=== PATIENT | male | born 2005 | race Two or more races ===

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

== ENCOUNTER 2023-06-08 13:28 | Inpatient (IN) | payer OTHER ==
[~2023-06-08] VITALS: Ht 172.7 cm; Wt 60.0 kg
[2023-06-08] MEDS ORDERED: VISTARIL25 MG PO (15:14)
[2023-06-08] MEDS ORDERED: PROMACTA50 MG PO (15:14)
[2023-06-08] MEDS ORDERED: CLINDAMYCI75 MG/5 M1 (15:15)
[2023-06-08] MEDS ORDERED: 0.9 % SODIUM CHLORIDE 1,000 ML IV SCH (16:00)
[2023-06-08] MEDS ORDERED: CLINDAMYCIN PHOSPHATE 150 MG/ML (300mg) IV SCH (17:00)
[2023-06-08 17:08] LABS: HEMATOCRIT 42.8 % (39.0-48.0); HEMOGLOBIN 14.6 g/dL (13-16.00); MEAN CELL VOLUME 86.2 fL (80.0-100.00); MEAN CORPUSCULAR HEMOGLOBIN 29.3 pg (27.00-32.0); MEAN CORPUSCULAR HGB CONC 34.1 g/dl (32.0-36.0); RED BLOOD COUNT 4.97 M/uL (4.00-6.00); RED CELL DISTRIBUTION WIDTH 13.2 % (11.5-14.5)
[2023-06-08 17:24] LABS: PLATELET COUNT 123 K/uL (150-450)
[2023-06-08 17:38] LABS: INR 1.01; PARTIAL THROMBOPLASTIN TIME 32.4 SECONDS (22.0-34.0); PROTHROMBIN TIME 10.6 SECONDS (9.0-11.5)
[2023-06-08 17:43] LABS: ALBUMIN 4.1 gm/dL (3.4-5.0); BILIRUBIN TOTAL 0.39 mg/dL (0.3-1.2); CALCIUM 9.2 mg/dL (8.5-10.1); CREATININE SERUM 0.73 mg/dL (0.70-1.30); D DIMER < 0.19 MG/L; GFR 138.41; GLOBULINA 3.1 G/DL (2.4-3.5); POTASSIUM 3.73 mEq/L (3.5-5.1); TOTAL PROTEIN 7.2 gm/dL (6.4-8.2)
[2023-06-08 19:53] LABS: COL EPI 62 SECONDS (82-175)
[2023-06-08] MEDS ORDERED: ACETAMINOPHEN 500 MG GEL..CAP PO SCH (21:00)
[2023-06-09 06:52] LABS: HEMATOCRIT 40.4 % (39.0-48.0); HEMOGLOBIN 13.8 g/dL (13-16.00); MEAN CELL VOLUME 86.8 fL (80.0-100.00); MEAN CORPUSCULAR HEMOGLOBIN 29.6 pg (27.00-32.0); MEAN CORPUSCULAR HGB CONC 34.1 g/dl (32.0-36.0); RED BLOOD COUNT 4.65 M/uL (4.00-6.00)
[2023-06-09 07:37] LABS: PLATELET COUNT 117 K/uL (150-450)
[2023-06-09] MEDS ORDERED: PATIENTS OWN MEDICATION (MEDICAMENTO EN PISO) PO SCH ×2 (09:00→12:00)
[2023-06-09] MEDS ORDERED: SERTRALINE HCL 25 MG TABLET PO SCH (09:00)
[2023-06-09] MEDS ORDERED: hydrOXYzine PAMOATE 25 MG CAPSULE PO SCH (09:00)
[2023-06-10] MEDS ORDERED: hydrOXYzine PAMOATE 50 MG CAPSULE PO STA (19:38)
[2023-06-10 22:00] LABS: COCAINE NEGATIVE (NEGATIVE); METHADONE NEGATIVE (NEGATIVE); OPIATES NEGATIVE (NEGATIVE); THC ( Cannabinoids) POSITIVE (NEGATIVE)
[2023-06-11 06:31] LABS: HEMATOCRIT 40.8 % (39.0-48.0); MEAN CELL VOLUME 84.9 fL (80.0-100.00); MEAN CORPUSCULAR HEMOGLOBIN 29.1 pg (27.00-32.0); MEAN CORPUSCULAR HGB CONC 34.3 g/dl (32.0-36.0); RED BLOOD COUNT 4.81 M/uL (4.00-6.00); RED CELL DISTRIBUTION WIDTH 13.1 % (11.5-14.5)
[2023-06-11 07:27] LABS: PLATELET COUNT 146 K/uL (150-450)
[2023-06-11] MEDS ORDERED: CLEOCIN HCL300 MG PO (13:47)
== END 2023-06-11 13:53 | disposition home or self-care (01) | DRG 603 ==
LOC: ER 13:28 → EMR PED 15:13 → ER 15:13 → PED 21:00
PROVIDERS: Emergency Medicine; Emergency Medicine Pediatric Emergency Medicine; Internal Medicine Hematology & Oncology; ADMIT Emergency Medicine; ATTEND Emergency Medicine
DX: L03.011 Cellulitis of right finger (principal); D69.3 Immune thrombocytopenic purpura; B96.89 Other specified bacterial agents as the cause of diseases classified elsewhere